=== PATIENT | male | born 1950 | race Caucasian/White ===

== ENCOUNTER → 2018-09-13 | Outpatient (CLI) | payer MEDICARE ==
[2018-09-13 17:25] LABS: ALBUMIN 3.7 GM/DL (3.2-5.2); ALT/SGPT 42 U/L (12-78); BILIRUBIN,TOTAL 0.5 MG/DL (0.2-1.0); BLOOD UREA NITROGEN 19 MG/DL (7-18); CALCIUM LEVEL 8.5 MG/DL (8.8-10.2); CARBON DIOXIDE LEVEL 32 MEQ/L (21-32); CHLORIDE LEVEL 103 MEQ/L (98-107); CREATININE FOR GFR 0.88 MG/DL (0.70-1.30); GLOMERULAR FILTRATION RATE > 60.0 (>49); GLUCOSE, FASTING 136 MG/DL (70-100); NT-PRO BNP 127 PG/ML (<125); POTASSIUM SERUM 4.3 MEQ/L (3.5-5.1); SODIUM LEVEL 140 MEQ/L (136-145); TOTAL PROTEIN 6.7 GM/DL (6.4-8.2); TROPONIN I < 0.02 NG/ML (< 0.10)
== END ==
LOC: M SMT 13:31
PROVIDERS: ATTEND Internal Medicine Cardiovascular Disease
DX: R07.89 Other chest pain (principal); I25.10 Atherosclerotic heart disease of native coronary artery without angina pectoris

== ENCOUNTER → 2019-12-01 | Outpatient (CLI) | payer OTHER ==
--- NOTE | 2019-12-01 20:41 | REP ---
Clinical: Scrotal swelling. Technique: Real time [place] scale and color Doppler evaluation using linear high frequency transducer. Findings: Right testicle and epididymis are normal in appearance and without hydrocele, varicocele, or obvious abnormality. Right testicle measures 4.3 x 2.4 x 2.6 cm. Scrotal swelling is secondary to a large simple left hydrocele versus epididymal cyst which measures 8.4 x 4.2 x 6.0 cm and causes mild mass effect on the left testicle. The left testicle and epididymis are otherwise normal in appearance and vascularity without mass, acute infectious/inflammatory process, or torsion. No varicoceles. Impression: 1. Scrotal swelling secondary to a large simple fluid collection in the left antoni scrotum. 2. Bilateral testicles and epididymi appear normal. Electronically Signed by Serge Farrell MD 12/01/2019 08:32 P
== END ==
LOC: M RAD 11:18
PROVIDERS: ATTEND Nurse Practitioner Women's Health
DX: N50.89 Other specified disorders of the male genital organs (principal)

== ENCOUNTER → 2020-01-18 | Outpatient (CLI) | payer OTHER ==
[~2020-01-18] MED LIST: ATOR1TAB19 PO; ATOR80TA59 PO; D31000TA2 PO; ECOT81TA5 PO; LANTINJ4 SC; METF10004 PO; METO1TAB33 PO; PROAAER10 INH; VICT18IN SC; WARF-20 PO; WARF-60 PO
== END ==
LOC: M LABSMTC 11:44
PROVIDERS: ATTEND Anesthesiology
DX: Z03.818 Encounter for observation for suspected exposure to other biological agents ruled out (principal); Z11.59 Encounter for screening for other viral diseases
CPT/HCPCS: C9803; U0003

== ENCOUNTER 2020-01-23 06:12 | Day surgery (SDC) | payer OTHER ==
[~2020-01-23] VITALS: Ht 180.3 cm; Wt 83.0 kg
[2020-01-23] MEDS ORDERED: LR 1,000 ML IV ONE (06:30)
[2020-01-23] MEDS ORDERED: ceFAZolin SOD 2 GM in IV 1 EA IV ONE (06:30)
[2020-01-23] MEDS ORDERED: LIDOCAINE 2% 100MG/5ML SDV (FOR ANES.) As Ordered ONE (06:51)
[2020-01-23] MEDS ORDERED: propofoL 200 MG/20 ML VIAL As Ordered ONE (06:51)
[2020-01-23] MEDS ORDERED: MIDAZOLAM INJ 2MG/2ML VIAL (J2250 PER 1MG) As Ordered ONE (06:51)
[2020-01-23] MEDS ORDERED: fentaNYL 100 MCG/2 ML INJECTION (J3010) As Ordered ONE (06:52)
[2020-01-23] MEDS ORDERED: BACITRACIN OINTMENT 30GM TUBE As Ordered ONE (07:13)
[2020-01-23] MEDS ORDERED: BUPIVACAINE HCL 0.25% 10ML VIAL As Ordered ONE (07:13)
[2020-01-23] MEDS ORDERED: LIDOCAINE 1% MDV 20ML VIAL As Ordered ONE (07:13)
[2020-01-23] MEDS ORDERED: ONDANSETRON 4MG/2ML VIAL As Ordered ONE (07:50)
[2020-01-23 08:04] LABS: INR 1.07; PROTHROMBIN TIME 13.6 SECONDS (11.8-14.0)
[2020-01-23] MEDS ORDERED: LR 1,000 ML IV SCH (09:00)
[2020-01-23] MEDS ORDERED: fentaNYL 100 MCG/2 ML INJECTION (J3010) IV PRN (09:00)
[2020-01-23] MEDS ORDERED: oxyCODONE 5MG TAB PO PRN (09:00)
[2020-01-23] MEDS ORDERED: ONDANSETRON 4MG/2ML VIAL IV PRN (09:00)
[2020-01-23] MEDS ORDERED: PERCOCET 5MG/325MG TAB PO PRN (09:00)
[2020-01-23] MEDS ORDERED: ALBUTEROL SULFATE 2.5 MG/0.5 ML INH NEB SOLN As Ordered ONE (09:22)
[2020-01-23] MEDS ORDERED: ALBUTEROL SULFATE 2.5 MG/0.5 ML INH NEB SOLN INH ONE (09:30)
[2020-01-23 09:38] VITALS: BP 159/75
--- NOTE | 2020-05-15 11:44 | RO ---
DATE OF PROCEDURE: January 23, 2020 PRE-PROCEDURE DIAGNOSIS: Left hydrocele. POST-PROCEDURE DIAGNOSIS: Left hydrocele. PROCEDURE: Left hydrocelectomy. SURGEON: Jaleel Torrez MD VALVE SETTER: None. ANESTHESIA: General. OPERATIVE INDICATIONS: This is 69-year-old male with a large left hydrocele who was brought to the operating room for treatment. DESCRIPTION OF PROCEDURE: The patient was brought to the operating room and general anesthesia was induced. Prophylactic antibiotics were infused. He was placed in the supine position and prepped and draped in the usual sterile fashion. At this point, an approximately 6-7 cm transverse incision was made over the left hemiscrotum. We then dissected down through the scrotal wall layers. The left testicle and hydrocele were then delivered outside of the left hemiscrotum. The hydrocele was then punctured and a large amount of serous fluid was drained. The tunica vaginalis was then removed using electrocautery. I then oversewed the edges of the tunica vaginalis with running 3-0 Vicryl suture. Once I was done, I checked for hemostasis and any areas of bleeding were controlled with electrocautery. The testicle was then placed back inside the left hemiscrotum in its normal anatomic position. Once I was done, the dartos muscle was then closed with a running 2-0 Vicryl suture. The skin was then closed with interrupted 2-0 chromic suture. Dressings were then applied. This marked the conclusion of the procedure. The patient was then awakened from anesthesia and transported to the recovery room in stable condition. ESTIMATED BLOOD LOSS: 10 mL. COMPLICATIONS: None. SPECIMENS: Hydrocele sac. PLAN: The patient will follow up in the [facility] in a few weeks for a postoperative visit. KATELYNN
== END 2020-01-23 10:52 | disposition home or self-care (01) ==
LOC: M SDC 06:12
PROVIDERS: ATTEND Urology
DX: N43.3 Hydrocele, unspecified (principal); I25.2 Old myocardial infarction; I10 Essential (primary) hypertension; E10.9 Type 1 diabetes mellitus without complications; Z95.810 Presence of automatic (implantable) cardiac defibrillator; Z79.01 Long term (current) use of anticoagulants; Z79.4 Long term (current) use of insulin; Z79.84 Long term (current) use of oral hypoglycemic drugs; Z79.899 Other long term (current) drug therapy; Z79.51 Long term (current) use of inhaled steroids; J44.9 Chronic obstructive pulmonary disease, unspecified; G47.30 Sleep apnea, unspecified; Z98.61 Coronary angioplasty status
CPT/HCPCS: 36415; 55040; 85610; 88302; J0690; J2250; J2405; J3010

== ENCOUNTER → 2020-10-18 | Outpatient (REF) | payer OTHER | LOC: M LAB REF 08:18 | PROVIDERS: ATTEND Surgery | DX: D23.5 Other benign neoplasm of skin of trunk (principal) ==

== ENCOUNTER → 2021-08-02 | Outpatient (CLI) | payer MEDICAID, MEDICARE, OTHER ==
[~2021-08-02] MED LIST changes: +FURO20TA2 PO
== END ==
LOC: M RAD 13:09
PROVIDERS: ATTEND Nurse Practitioner Family
DX: I65.21 Occlusion and stenosis of right carotid artery (principal)

== ENCOUNTER → 2021-08-09 | Outpatient (CLI) | payer OTHER | LOC: M LABSMTC 09:59 | PROVIDERS: ATTEND Anesthesiology | DX: Z01.818 Encounter for other preprocedural examination (principal); Z11.52 Encounter for screening for COVID-19 ==

== ENCOUNTER → 2021-08-13 | Outpatient (CLI) | payer OTHER ==
[~2021-08-13] MED LIST changes: +ISOVUE-370 76% 100ML VIAL As Ordered ONE
== END ==
LOC: M RAD 09:33
PROVIDERS: ATTEND Nurse Practitioner Primary Care
DX: R31.9 Hematuria, unspecified (principal)
CPT/HCPCS: 74178; Q9967

== ENCOUNTER 2021-08-14 06:39 | Day surgery (SDC) | payer OTHER ==
[~2021-08-14] VITALS: Ht 180.3 cm; Wt 82.6 kg
[~2021-08-14 06:39] MED LIST changes: -ISOVUE-370 76% 100ML VIAL As Ordered ONE; +NS 1,000 ML IV ONE
[2021-08-14] MEDS ORDERED: propofoL 200 MG/20 ML VIAL As Ordered ONE ×3 (07:27→08:15)
[2021-08-14] MEDS ORDERED: LIDOCAINE 2% 100MG/5ML SDV (FOR ANES.) As Ordered ONE (07:27)
[2021-08-14] MEDS ORDERED: ESMOLOL INJ 100MG/10ML VIAL As Ordered ONE (07:27)
[2021-08-14 09:10] VITALS: BP 138/82
== END 2021-08-14 09:21 | disposition home or self-care (01) ==
LOC: M OPP 06:39
PROVIDERS: ATTEND Surgery
DX: Z12.11 Encounter for screening for malignant neoplasm of colon (principal); Z86.010 Personal history of colon polyps; K62.1 Rectal polyp; K63.5 Polyp of colon; K64.8 Other hemorrhoids; Z79.4 Long term (current) use of insulin; Z79.82 Long term (current) use of aspirin; F17.210 Nicotine dependence, cigarettes, uncomplicated; Z86.718 Personal history of other venous thrombosis and embolism; Z95.810 Presence of automatic (implantable) cardiac defibrillator; Z87.438 Personal history of other diseases of male genital organs

== ENCOUNTER 2022-05-14 09:18 | Emergency (ER) | payer OTHER ==
[~2022-05-14] VITALS: Ht 180.3 cm; Wt 77.3 kg
[2022-05-14 09:18] VITALS: BP 141/65
[~2022-05-14 09:18] MED LIST changes: -D31000TA2 PO; -NS 1,000 ML IV ONE; +VITA100093 PO
== END 2022-05-14 10:50 | disposition left against medical advice (07) ==
LOC: M ED 09:18
DX: Z53.21 Procedure and treatment not carried out due to patient leaving prior to being seen by health care provider (principal)

== ENCOUNTER → 2022-05-23 | Outpatient (CLI) | payer OTHER | LOC: M RAD 11:31 | PROVIDERS: ATTEND Surgery | DX: I82.402 Acute embolism and thrombosis of unspecified deep veins of left lower extremity (principal) ==

== ENCOUNTER → 2022-06-04 | Outpatient (CLI) | payer OTHER | LOC: M LABSMTC 09:41 | PROVIDERS: ATTEND Anesthesiology | DX: Z01.812 Encounter for preprocedural laboratory examination (principal); Z11.52 Encounter for screening for COVID-19 ==

== ENCOUNTER → 2022-09-05 | Outpatient (CLI) | payer OTHER | LOC: M RAD 11:55 | PROVIDERS: ATTEND Nurse Practitioner Family | DX: I65.21 Occlusion and stenosis of right carotid artery (principal) ==

== ENCOUNTER → 2024-09-30 | Day surgery (SDC) | payer OTHER, MEDICAID ==
[~2024-09-30] VITALS: Ht 180.3 cm; Wt 74.8 kg
[~2024-09-30] MED LIST changes: +KETOROLAC 30 MG/ML 1ML VIAL As Ordered ONE; +LIDOCAINE 2% 100MG/5ML SDV (FOR ANES.) As Ordered ONE; +LR 1,000 ML IV SCH; +METF500T13 PO; +MIDAZOLAM INJ 2MG/2ML VIAL As Ordered ONE; +ONDANSETRON 4MG 2ML VIAL As Ordered ONE; +PROA1AER2 INH; +SEMA0.257 SQ; +TREL1AER INH; +ceFAZolin SOD 2 GM IV ONCE IV ONE; +fentaNYL 100 MCG/2 ML INJECTION As Ordered ONE; +propofoL 200 MG/20 ML VIAL As Ordered ONE
[2024-09-30 06:22] VITALS: BP 180/74; TEMP 97.7; O2SAT 99
== END | disposition home or self-care (01) ==
LOC: M SDC 06:15
PROVIDERS: ATTEND Surgery
DX: L72.3 Sebaceous cyst (principal); Z53.8 Procedure and treatment not carried out for other reasons